=== PATIENT | male | born 1995 | race African-American/Black ===

== ENCOUNTER 2016-10-22 00:46 | Emergency (ER) | payer OTHER ==
[2016-10-22 01:24] LABS: Hematocrit 36 % (42-52); Hemoglobin 11.5 g/dl (14.0-18.0); Mean Corpuscular HGB Conc 32 g/dl (31-36); Mean Corpuscular Hemoglobin 23 pg (27-31); Mean Corpuscular Volume 73 fL (80-94); Mean Platelet Volume 8 um3 (7.4-10.4); Red Blood Count 4.95 10^6/ul (4.0-5.4); Red Cell Distribution Width 16 % (10.5-15); White Blood Count 12.1 10^3/ul (3.5-10.8)
[2016-10-22 01:29] LABS: Add Diff/Slide Review? Slide Review Added; Comments Flag Yes
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
[2016-10-22 01:42] LABS: ALT 13 U/L (7-52); AST 19 U/L (13-39); Albumin 4.4 g/dL (3.2-5.2); Alkaline Phosphatase 77 U/L (34-104); Anion Gap 1 mmol/L (2-11); BUN/Creatinine Ratio 11.5 (8-20); Blood Urea Nitrogen 11 mg/dL (6-24); CO2 Carbon Dioxide 31 mmol/L (22-32); Chloride 106 mmol/L (101-111); EGFR African American 127.2 (>60); EGFR Non-African American 98.9 (>60); Globulin 2.2 g/dL (2-4); Glucose 92 mg/dL (70-100); Sodium 138 mmol/L (133-145); Total Protein 6.6 g/dL (6.4-8.9)
[2016-10-22 01:43] LABS: Acetaminophen < 15 mcg/mL; Alcohol < 10 mg/dL (<10); Salicylate < 2.50 mg/dL (<30)
[2016-10-22 01:52] LABS: TSH (Thyroid Stimulating Horm) 1.93 mcIU/mL (0.34-5.60)
[2016-10-22 02:19] VITALS: BP 130/57
--- NOTE | 2016-10-22 07:27 | PN ---
IBronson SooYoung, scribed for Saman Hercules MD on 10/22/16 at 0723 . Progress Note - Progress Note Date of Service: 10/22/16 Note: SO from Keisha WILEY pending MHE. Pt was medically cleared at 0300. Discussed pt with mental health line runner, pt is on MH hold until morning. diagnosis depression, SI. Condition stable The documentation as recorded by the yasmeenibBronson perez SooYoung accurately reflects the service I personally performed and the decisions made by me, Saman Hercules MD.
[2016-10-22 09:55] LABS: Urine Bacteria Absent (Absent); Urine Bilirubin Negative (Negative); Urine Glucose Negative (Negative); Urine Nitrite Negative (Negative)
[2016-10-22 10:06] LABS: Benzodiazepine Urine Screen None Detected (None Detect)
== END 2016-10-22 11:55 ==
LOC: ED 00:46
DX: F34.9 Persistent mood [affective] disorder, unspecified (principal)
CPT/HCPCS: 36415; 80053; 80307; 80320; 80329; 81003; 81015; 84443; 85025; 87086; 99283; G0480

== ENCOUNTER 2016-10-22 13:27 | Emergency (ER) | payer OTHER ==
[2016-10-22] MEDS ORDERED: diPHENhydraMINE IV* 50 MG/ML 1 ml VIAL (BENADRYL) IM ONE (16:25)
[2016-10-22] MEDS ORDERED: LORazepam INJ* 2 MG/ML 1 ML VIAL IM ONE (16:26)
[2016-10-22] MEDS ORDERED: Haloperidol INJ IV/IM* 5 MG/ML AMP IM ONE (16:26)
[2016-10-22 17:02] LABS: Hematocrit 39 % (42-52); Hemoglobin 12.1 g/dl (14.0-18.0); Mean Corpuscular HGB Conc 31 g/dl (31-36); Mean Corpuscular Hemoglobin 23 pg (27-31); Mean Platelet Volume 8 um3 (7.4-10.4); Red Blood Count 5.22 10^6/ul (4.0-5.4); Red Cell Distribution Width 17 % (10.5-15); White Blood Count 12.8 10^3/ul (3.5-10.8)
[2016-10-22 17:04] LABS: Comments Flag Yes; Mean Corpuscular Volume 74 fL (80-94)
--- NOTE | 2016-10-22 17:10 | CONSULT ---
Consult Consult: Mr. Rodriguez presented on a previous shift with a C/O anxiety. He was medically cleared and had a MHE. They felt that he was safe for D/C. The patient did not want to go as he felt safer here. He was D/C'd in stable condition with a diagnosis of anxiety.
[2016-10-22 17:14] LABS: ALT 15 U/L (7-52); AST 22 U/L (13-39); Albumin 4.2 g/dL (3.2-5.2); Alkaline Phosphatase 91 U/L (34-104); Anion Gap 17 mmol/L (2-11); BUN/Creatinine Ratio 11.9 (8-20); Blood Urea Nitrogen 12 mg/dL (6-24); CO2 Carbon Dioxide 20 mmol/L (22-32); Calcium 9.6 mg/dL (8.6-10.3); Chloride 102 mmol/L (101-111); EGFR African American 119.9 (>60); EGFR Non-African American 93.2 (>60); Globulin 2.9 g/dL (2-4); Glucose 79 mg/dL (70-100); Potassium 3.6 mmol/L (3.5-5.0); Sodium 139 mmol/L (133-145); Total Protein 7.1 g/dL (6.4-8.9)
[2016-10-22 17:33] LABS: Acetaminophen < 15 mcg/mL; Alcohol < 10 mg/dL (<10); Salicylate < 2.50 mg/dL (<30)
[2016-10-22 17:43] LABS: TSH (Thyroid Stimulating Horm) 1.46 mcIU/mL (0.34-5.60)
[2016-10-22 18:10] LABS: Urine Bilirubin Negative (Negative); Urine Glucose Negative (Negative); Urine Nitrite Negative (Negative)
[2016-10-22 18:23] LABS: Benzodiazepine Urine Screen None Detected (None Detect)
[2016-10-22 23:30] VITALS: BP 112/57
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
[2016-10-23] MEDS ORDERED: diPHENhydraMINE IV* 50 MG/ML 1 ml VIAL (BENADRYL) IM ONE (10:19)
[2016-10-23] MEDS ORDERED: Haloperidol INJ IV/IM* 5 MG/ML AMP IM ONE (10:19)
[2016-10-23] MEDS ORDERED: LORazepam INJ* 2 MG/ML 1 ML VIAL IM ONE (10:19)
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
== END 2016-10-23 15:16 ==
LOC: ED 13:27
DX: R45.851 Suicidal ideations (principal); F91.9 Conduct disorder, unspecified; R45.6 Violent behavior
CPT/HCPCS: 36415; 80053; 80307; 80320; 80329; 81003; 84443; 85025; 96372; 99285; G0480; J1200; J1630; J2060

== ENCOUNTER 2016-10-25 23:23 | Emergency (ER) | payer OTHER ==
[2016-10-25 23:34] VITALS: BP 159/71
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
[2016-10-26 01:06] LABS: Hematocrit 36 % (42-52); Hemoglobin 11.7 g/dl (14.0-18.0); Mean Corpuscular HGB Conc 33 g/dl (31-36); Mean Corpuscular Hemoglobin 24 pg (27-31); Mean Platelet Volume 8 um3 (7.4-10.4); Red Blood Count 4.96 10^6/ul (4.0-5.4); Red Cell Distribution Width 16 % (10.5-15)
[2016-10-26 01:08] LABS: Urine Bilirubin Negative (Negative); Urine Glucose Negative (Negative); Urine Nitrite Negative (Negative)
[2016-10-26 01:22] LABS: ALT 20 U/L (7-52); AST 30 U/L (13-39); Acetaminophen < 15 mcg/mL; Albumin 4.3 g/dL (3.2-5.2); Alcohol < 10 mg/dL (<10); Alkaline Phosphatase 86 U/L (34-104); Anion Gap 7 mmol/L (2-11); BUN/Creatinine Ratio 17.1 (8-20); Blood Urea Nitrogen 18 mg/dL (6-24); CO2 Carbon Dioxide 29 mmol/L (22-32); Calcium 9.6 mg/dL (8.6-10.3); Chloride 101 mmol/L (101-111); EGFR African American 114.7 (>60); EGFR Non-African American 89.2 (>60); Globulin 2.6 g/dL (2-4); Glucose 96 mg/dL (70-100); Potassium 3.9 mmol/L (3.5-5.0); Salicylate < 2.50 mg/dL (<30); Sodium 137 mmol/L (133-145); Total Protein 6.9 g/dL (6.4-8.9)
[2016-10-26 01:23] LABS: Benzodiazepine Urine Screen None Detected (None Detect)
[2016-10-26 01:26] LABS: Comments Flag Yes
[2016-10-26 01:27] LABS: Mean Corpuscular Volume 72 fL (80-94)
[2016-10-26 01:33] LABS: TSH (Thyroid Stimulating Horm) 2.63 mcIU/mL (0.34-5.60)
[2016-10-26] MEDS ORDERED: Haloperidol TAB* 5 MG PO ONE (06:15)
== END 2016-10-26 07:00 | disposition home or self-care (01) ==
LOC: ED 23:23
DX: F15.20 Other stimulant dependence, uncomplicated (principal); R06.02 Shortness of breath; F41.9 Anxiety disorder, unspecified
CPT/HCPCS: 36415; 80053; 80307; 80320; 80329; 81003; 84443; 85025; 99285; A9270-GY; G0480

== ENCOUNTER 2016-10-26 10:43 | Emergency (ER) | payer OTHER ==
[2016-10-26 11:00] VITALS: BP 112/52
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
== END 2016-10-26 19:47 | disposition home or self-care (01) ==
LOC: ED 10:43
DX: Z72.811 Adult antisocial behavior (principal)
CPT/HCPCS: 99283

== ENCOUNTER 2016-11-17 19:50 | Emergency (ER) | payer OTHER ==
[2016-11-17 20:49] LABS: Hematocrit 35 % (42-52); Hemoglobin 11.5 g/dl (14.0-18.0); Mean Corpuscular HGB Conc 33 g/dl (31-36); Mean Corpuscular Hemoglobin 23 pg (27-31); Mean Platelet Volume 8 um3 (7.4-10.4); Red Blood Count 4.93 10^6/ul (4.0-5.4); Red Cell Distribution Width 16 % (10.5-15); White Blood Count 15.5 10^3/ul (3.5-10.8)
[2016-11-17 20:50] LABS: Comments Flag Yes; Mean Corpuscular Volume 72 fL (80-94)
[2016-11-17 21:03] LABS: ALT 35 U/L (7-52); AST 36 U/L (13-39); Albumin 4.5 g/dL (3.2-5.2); Alkaline Phosphatase 97 U/L (34-104); Anion Gap 10 mmol/L (2-11); BUN/Creatinine Ratio 18.3 (8-20); Blood Urea Nitrogen 19 mg/dL (6-24); CO2 Carbon Dioxide 27 mmol/L (22-32); Calcium 9.5 mg/dL (8.6-10.3); Chloride 97 mmol/L (101-111); EGFR African American 115.9 (>60); EGFR Non-African American 90.2 (>60); Globulin 2.8 g/dL (2-4); Glucose 85 mg/dL (70-100); Potassium 3.7 mmol/L (3.5-5.0); Sodium 134 mmol/L (133-145); Total Protein 7.3 g/dL (6.4-8.9)
--- NOTE | 2016-11-17 21:40 | ED ---
Kamini Betancourt Thomas, scribed for Ashvin Caceres MD on 11/17/16 at 2014 . Psychiatric Complaint - HPI Summary HPI Summary: The pt is a 21 y/o M presenting to the ED in need of a mental health examination. He is paranoid, saying that I dont know who to trust because I dont know anybody here. The patient. He says he is hungry and dehydrated. Yesterday, the patient drank excessively and used crack cocaine. Pt denies any pain, abd pain, and HI. PMHx: previously healthy. PSHx: none. SHx: alcohol use, marijuana use, crack cocaine use. FHx: drug abuse. He has recent visits to [facility] ED for psychiatric complaints. - History Of Current Complaint Time Seen by Provider: 11/17/16 20:01 Hx Obtained From: Patient Onset/Duration: Still Present Timing: Constant Severity Currently: Moderate Aggravating Factor(s): Other - Unknown Alleviating Factor(s): Nothing Associated Signs And Symptoms: Positive: Paranoid Behavior Related History: Positive For: Prior Psychiatric Issues Has Suicidal: Denies: Thoughts Has Homicidal: Denies: Thoughts Ingestion History: Type/Name Of Drug - alcohol and crack cocaine use yesterday - Allergies/Home Medications Allergies/Adverse Reactions: Allergies Allergy/AdvReac Type Severity Reaction Status Date / Time No Known Allergies Allergy Verified 10/23/16 10:15 PMH/Surg Hx/FS Hx/Imm Hx Previously Healthy: No Endocrine/Hematology History: Denies: Hx Anticoagulant Therapy Cardiovascular History: Denies: Hx Hypertension Psychiatric History: Reports: Hx Anxiety, Hx Attention Deficit Hyperactivity Disorder, Hx Depression, Hx Post Traumatic Stress Disorder, Hx Bipolar Disorder , Hx of Violent Episodes Against Others, Hx Substance Abuse - stimulants - adderall, cocaine, crack Denies: Hx Eating Disorder - Surgical History Surgery Procedure, Year, and Place: None - Family History Known Family History: Positive: Other - depression, drug abuse - Social History Alcohol Use: Occasionally Substance Use Type: Reports: Cocaine, Marijuana Substance Use Comment - Amount & Last Used: crack cocaine Smoking Status (MU): Unknown if Ever Smoked Review of Systems Negative: Abdominal Pain Negative: Other - NEGATIVE: any pain Psychological: Other - Paranoid, in need of MHE; NEGATIVE: HI All Other Systems Reviewed And Are Negative: Yes Physical Exam Triage Information Reviewed: Yes Vital Signs On Initial Exam: Temp 99.7, HR 94, RR 20, SaO2 99, BP 131/65 Vital Signs Reviewed: Yes Appearance: Positive: Well-Appearing, No Pain Distress Head/Face: Positive: Normal Head/Face Inspection Eyes: Positive: EOMI ENT: Positive: Normal ENT inspection Neck: Positive: Nontender Respiratory/Lung Sounds: Positive: Clear to Auscultation, Breath Sounds Present Cardiovascular: Positive: RRR. Negative: Murmur Abdomen Description: Positive: Nontender Musculoskeletal: Positive: Strength/ROM Intact Neurological: Positive: Sensory/Motor Intact, Alert, Oriented to Person Place, Time, CN Intact II-III Psychiatric: Positive: Anxious - the patient is anxious and worried someone will harm him. - Emi Coma Scale Best Eye Response: 4 - Spontaneous Best Motor Response: 6 - Obeys Commands Best Verbal Response: 5 - Oriented Diagnostics - Vital Signs Temp 99.7, HR 94, RR 20, SaO2 99, BP 131/65 - Laboratory Result Diagrams: 11/17/16 20:43 11/17/16 20:43 Lab Statement: Any lab studies that have been ordered have been reviewed, and results considered in the medical decision making process. Course/Dx - Course Assessment/Plan: The pt is a 21 y/o M presenting to the ED in need of a mental health examination. He is paranoid. He excessively drank and used crack cocaine yesterday. Sign out awaiting tylenol, asa, etoh and utox screen. - Differential Dx/Clinical Impression Provider Diagnosis: Paranoid delusion, Polysubstance abuse Discharge - Discharge Plan Condition: Good Disposition: OTHER Discharge Disposition Comment: awaiting psych eval, sign out Dr Daley [id number] Referrals: Non Staff,Doctor [Primary Care Provider] - The documentation as recorded by the Kamini graff Thomas accurately reflects the service I personally performed and the decisions made by me, Ashvin Caceres MD.
[2016-11-17 22:08] LABS: Acetaminophen < 15 mcg/mL; Alcohol < 10 mg/dL (<10); Salicylate < 2.50 mg/dL (<30)
[2016-11-17 22:25] LABS: TSH (Thyroid Stimulating Horm) 2.36 mcIU/mL (0.34-5.60)
[2016-11-18 13:18] LABS: Urine Bilirubin Negative (Negative); Urine Glucose Negative (Negative); Urine Nitrite Negative (Negative)
[2016-11-18 13:29] LABS: Benzodiazepine Urine Screen None Detected (None Detect)
[2016-11-18 16:41] VITALS: BP 119/53
== END 2016-11-18 16:04 ==
LOC: ED 19:50
DX: F22 Delusional disorders (principal); F19.10 Other psychoactive substance abuse, uncomplicated; F90.9 Attention-deficit hyperactivity disorder, unspecified type; F41.9 Anxiety disorder, unspecified; F32.9 Major depressive disorder, single episode, unspecified
CPT/HCPCS: 36415; 80053; 80307; 80320; 80329; 81003; 84443; 85025; 99283; G0480

== ENCOUNTER 2016-11-18 18:34 | Inpatient (IN) | payer OTHER ==
--- NOTE | 2016-11-18 21:12 | ED ---
Psychiatric Complaint - HPI Summary HPI Summary: 21M presents for MHE. He states he does not feel safe an no one will listen to him. He states that he feels someone is trying to hurt him with a knife. He states he needs to be admitted but did not want to come here because no one will listen to him. He uses drugs and ETOH. He was discharged from here earlier this morning. He states someone was following him. - History Of Current Complaint Chief Complaint: EDMentalHealth Time Seen by Provider: 11/18/16 18:47 - Allergies/Home Medications Allergies/Adverse Reactions: Allergies Allergy/AdvReac Type Severity Reaction Status Date / Time No Known Allergies Allergy Verified 11/17/16 21:42 Home Medications: Home Medications Amphetamine-Dextroamphetamine [Amphetamine/Dextroampheta 30 mg-] 1 cap PO TID [History Confirmed 11/18/16] PMH/Surg Hx/FS Hx/Imm Hx Endocrine/Hematology History: Denies: Hx Anticoagulant Therapy Cardiovascular History: Denies: Hx Hypertension Psychiatric History: Reports: Hx Anxiety, Hx Attention Deficit Hyperactivity Disorder, Hx Depression, Hx Post Traumatic Stress Disorder, Hx Bipolar Disorder , Hx of Violent Episodes Against Others, Hx Substance Abuse - stimulants - adderall, cocaine, crack Denies: Hx Eating Disorder - Surgical History Surgery Procedure, Year, and Place: None Infectious Disease History: No Infectious Disease History: Denies: Traveled Outside the [place] in Last 30 Days - Family History Known Family History: Positive: Other - depression, drug abuse - Social History Alcohol Use: Occasionally Substance Use Type: Reports: Cocaine, Marijuana Substance Use Comment - Amount & Last Used: crack cocaine Smoking Status (MU): Unknown if Ever Smoked Review of Systems Negative: Fever Negative: Chest Pain Negative: Shortness Of Breath Positive: Depressed All Other Systems Reviewed And Are Negative: Yes Physical Exam Triage Information Reviewed: Yes Vital Signs On Initial Exam: Initial Vitals Temp Pulse Resp BP Pulse Ox 98.0 F 57 18 122/62 100 11/18/16 18:43 11/18/16 18:43 11/18/16 18:43 11/18/16 18:43 11/18/16 18:43 Vital Signs Reviewed: Yes Appearance: Positive: Well-Appearing Skin: Positive: Warm, Dry Head/Face: Positive: Normal Head/Face Inspection Eyes: Positive: Normal, Conjunctiva Clear Respiratory/Lung Sounds: Positive: Clear to Auscultation, Breath Sounds Present Cardiovascular: Positive: Normal, RRR Musculoskeletal: Positive: Normal Neurological: Positive: Normal Psychiatric: Positive: Other - paranoid, racing thoughts Diagnostics - Vital Signs Vital Signs Temp Pulse Resp BP Pulse Ox 11/18/16 18:43 98.0 F 57 18 122/62 100 - Laboratory Lab Statement: Any lab studies that have been ordered have been reviewed, and results considered in the medical decision making process. Course/Dx - Course Course Of Treatment: 21M presents for MHE. He states he does not feel safe an no one will listen to him. He states that he feels someone is trying to hurt him with a knife. He states he needs to be admitted but did not want to come here because no one will listen to him. He uses drugs and ETOH. He was discharged from here earlier this morning. on exam very lucid thoughts. medically clear for MHE. is going to be voluntarily admitted. - Differential Dx/Clinical Impression Differential Diagnosis/HQI/PQRI: Positive: Bipolar Disorder, Depression, Suicidal Ideation Provider Diagnosis: Paranoid Discharge - Discharge Plan Condition: Stable [facility] Referrals: Non Staff,Doctor [Primary Care Provider] -
[2016-11-18] MEDS ORDERED: hydrOXYzine HCL TAB* 50 MG ONE (23:30)
[2016-11-18] MEDS ORDERED: Acetaminophen TAB* 325 MG ONE (23:30)
[2016-11-18] MEDS ORDERED: OLANzapine TAB* 10 MG ONE (23:30)
[2016-11-18] MEDS ORDERED: Al Hydrox/Mg Hydrox/Simet LIQ* 30 ML UDC PO PRN (23:45)
[2016-11-18] MEDS ORDERED: Acetaminophen TAB* 325 MG PO PRN (23:45)
[2016-11-19] MEDS: Vitamin THERAPEUTIC TAB PO SCH (12:28)
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
[2016-11-20] MEDS: Vitamin THERAPEUTIC TAB PO SCH (08:44)
[2016-11-20] MEDS: hydrOXYzine HCL TAB* 50 MG PO PRN (16:07)
[2016-11-20] MEDS: OLANzapine TAB* 5 MG PO SCH ×2 (17:58→20:12)
[2016-11-21 08:10] VITALS: BP 126/53
[2016-11-21] MEDS: Vitamin THERAPEUTIC TAB PO SCH (09:15)
--- NOTE | 2016-11-21 15:03 | PN ---
Subjective - Subjective Subjective: Chadwick is requesting to leave, He is in tenuous behavioral control, mildly agitated, c/o about Olanzapine causing him to be sedated, he wonders why Welbutrin, he struggles to accept feedback that it was not the right medication/ for evgeny/psychosis. He denies drug withdrawal symptoms. Per staff, he has been compliant with taking prescribed Olanzapine but is not attending programming activities. Plan - Treatment Plan Medications: Current Medications Acetaminophen (Tylenol Tab*) 650 mg PO Q4H PRN PRN Reason: PAIN or TEMP > 101 F Al Hydrox/Mg Hydrox/Simethicone (Maalox Plus*) 30 ml PO Q4H PRN PRN Reason: INDIGESTION Hydroxyzine HCl (Atarax Tab*) 50 mg PO Q6H PRN PRN Reason: AGITATION/ANXIETY Last Admin: 11/20/16 16:07 Dose: 50 mg Multivitamins (Theragran Tab*) 1 tab PO DAILY COUNT INCLUDES THE [facility] Last Admin: 11/21/16 09:15 Dose: Not Given Olanzapine (Zyprexa Tab*) 10 mg PO BEDTIME COUNT INCLUDES THE [facility] Last Admin: 11/20/16 20:12 Dose: 10 mg
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
[2016-11-21] MEDS: OLANzapine TAB* 5 MG PO SCH (20:23)
[2016-11-21] MEDS: hydrOXYzine HCL TAB* 50 MG PO PRN (21:57)
[2016-11-22] MEDS: Vitamin THERAPEUTIC TAB PO SCH (09:06)
[2016-11-22] MEDS ORDERED: Mouth Piece, Nicotine* 1 EACH CARTRIDGE INH ONE (12:00)
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
[2016-11-22] MEDS: hydrOXYzine HCL TAB* 50 MG PO PRN (13:30)
[2016-11-22] MEDS: OLANzapine TAB* 5 MG PO SCH (20:28)
[2016-11-23] MEDS: Vitamin THERAPEUTIC TAB PO SCH (11:14)
[2016-11-23] MEDS: Nicotine PATCH 7 MG/24 HR* PATCH TRANSDERM SCH (11:14)
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
[2016-11-23] MEDS: hydrOXYzine HCL TAB* 50 MG PO PRN (18:39)
[2016-11-23] MEDS: Nicotine Patch Removal NOTE PATCH OFF SCH (20:30)
[2016-11-23] MEDS ORDERED: Paliperidone TAB* 6 MG PO SCH (21:00)
[2016-11-24] MEDS: Nicotine Inhaler* 10 MG AMP INH PRN (00:57)
[2016-11-24] MEDS: hydrOXYzine HCL TAB* 50 MG PO PRN ×2 (00:57→21:36)
[2016-11-24] MEDS: Nicotine PATCH 7 MG/24 HR* PATCH TRANSDERM SCH (09:32)
[2016-11-24] MEDS: Vitamin THERAPEUTIC TAB PO SCH (09:58)
[2016-11-24] MEDS: buPROPion TAB* 75 MG PO SCH (09:58)
[2016-11-24] MEDS ORDERED: Paliperidone SUSTENNA* 234 MG/1.5 ML IM ONE (14:42)
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
[2016-11-24] MEDS: traZODone TAB* 50 MG TAB PO PRN (21:35)
[2016-11-24] MEDS: Nicotine Patch Removal NOTE PATCH OFF SCH (21:37)
[2016-11-25] MEDS: Haloperidol TAB* 5 MG PO PRN (02:46)
[2016-11-25] MEDS: Nicotine PATCH 7 MG/24 HR* PATCH TRANSDERM SCH (08:29)
[2016-11-25] MEDS: buPROPion TAB* 75 MG PO SCH (08:29)
[2016-11-25 09:20] LABS: Albumin 4.2 g/dL (3.2-5.2); BUN/Creatinine Ratio 11.4 (8-20); Calcium 9.6 mg/dL (8.6-10.3); EGFR African American 159.2 (>60); EGFR Non-African American 123.8 (>60); Globulin 2.4 g/dL (2-4); HDL Cholesterol 49.7 mg/dL; Total Bilirubin 0.2 mg/dL (0.2-1.0); Total Protein 6.6 g/dL (6.4-8.9)
[2016-11-25] MEDS: Vitamin THERAPEUTIC TAB PO SCH (11:00)
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
[2016-11-25] MEDS: Nicotine Inhaler* 10 MG AMP INH PRN ×2 (19:59→22:52)
[2016-11-25] MEDS: Nicotine Patch Removal NOTE PATCH OFF SCH (20:00)
[2016-11-25] MEDS: hydrOXYzine HCL TAB* 50 MG PO PRN (21:40)
[2016-11-25] MEDS: traZODone TAB* 50 MG TAB PO PRN (21:40)
[2016-11-26] MEDS: Haloperidol TAB* 5 MG PO PRN ×2 (00:20→21:56)
[2016-11-26] MEDS: Nicotine PATCH 7 MG/24 HR* PATCH TRANSDERM SCH (10:00)
[2016-11-26] MEDS: buPROPion TAB* 75 MG PO SCH (10:00)
[2016-11-26] MEDS: Vitamin THERAPEUTIC TAB PO SCH (10:00)
[2016-11-26] MEDS: Nicotine Patch Removal NOTE PATCH OFF SCH (20:19)
[2016-11-26] MEDS: hydrOXYzine HCL TAB* 50 MG PO PRN (20:42)
[2016-11-26] MEDS: traZODone TAB* 50 MG TAB PO PRN (20:42)
[2016-11-27] MEDS: buPROPion TAB* 75 MG PO SCH ×2 (10:09→13:53)
[2016-11-27] MEDS: Nicotine PATCH 7 MG/24 HR* PATCH TRANSDERM SCH (10:09)
[2016-11-27] MEDS: Vitamin THERAPEUTIC TAB PO SCH (10:09)
[2016-11-27] MEDS: Nicotine GUM* 2 MG PO PRN ×2 (13:48→20:20)
[2016-11-27] MEDS: Nicotine Patch Removal NOTE PATCH OFF SCH (20:27)
[2016-11-27] MEDS: hydrOXYzine HCL TAB* 50 MG PO PRN (21:33)
[2016-11-27] MEDS: Haloperidol TAB* 5 MG PO PRN (21:33)
[2016-11-27] MEDS: traZODone TAB* 50 MG TAB PO PRN (21:33)
[2016-11-28] MEDS: Nicotine PATCH 7 MG/24 HR* PATCH TRANSDERM SCH (09:24)
[2016-11-28] MEDS: Vitamin THERAPEUTIC TAB PO SCH (09:24)
[2016-11-28] MEDS: buPROPion TAB* 75 MG PO SCH ×2 (09:24→12:52)
[2016-11-28] MEDS: Nicotine GUM* 2 MG PO PRN (12:52)
[2016-11-28] MEDS ORDERED: Paliperidone SUSTENNA* 156 MG/1 ML IM ONE (15:00)
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
[2016-11-28] MEDS: Nicotine Patch Removal NOTE PATCH OFF SCH (20:33)
[2016-11-28] MEDS: hydrOXYzine HCL TAB* 50 MG PO PRN (21:15)
[2016-11-28] MEDS: Haloperidol TAB* 5 MG PO PRN (21:15)
[2016-11-28] MEDS: traZODone TAB* 50 MG TAB PO PRN (21:15)
[2016-11-29] MEDS: Vitamin THERAPEUTIC TAB PO SCH (09:21)
[2016-11-29] MEDS: Nicotine PATCH 7 MG/24 HR* PATCH TRANSDERM SCH (09:21)
[2016-11-29] MEDS: buPROPion TAB* 75 MG PO SCH (12:09)
[2016-11-29 14:45] LABS: Hematocrit 37 % (42-52); Hemoglobin 11.9 g/dl (14.0-18.0); Mean Corpuscular HGB Conc 32 g/dl (31-36); Mean Corpuscular Hemoglobin 23 pg (27-31); Mean Platelet Volume 8 um3 (7.4-10.4); Red Blood Count 5.16 10^6/ul (4.0-5.4); Red Cell Distribution Width 17 % (10.5-15); White Blood Count 8.5 10^3/ul (3.5-10.8)
[2016-11-29 14:49] LABS: Comments Flag Yes; Mean Corpuscular Volume 72 fL (80-94)
[2016-11-29 15:07] LABS: Albumin 4.4 g/dL (3.2-5.2); BUN/Creatinine Ratio 14.1 (8-20); Calcium 9.9 mg/dL (8.6-10.3); EGFR African American 146.3 (>60); EGFR Non-African American 113.8 (>60); Globulin 2.9 g/dL (2-4); Potassium 4.1 mmol/L (3.5-5.0); Total Bilirubin 0.2 mg/dL (0.2-1.0); Total Protein 7.3 g/dL (6.4-8.9)
[2016-11-29] MEDS: hydrOXYzine HCL TAB* 50 MG PO PRN (15:38)
[2016-11-29] MEDS ORDERED: PPD test dose* 5 TU/0.1 ML TEST (*USE PPD ORDER SET*) INTRADERM ONE (17:00)
[2016-11-29] MEDS: Ferrous Sulfate TAB* 325 MG PO SCH (17:44)
[2016-11-29] MEDS: traZODone TAB* 50 MG TAB PO PRN (20:52)
[2016-11-29] MEDS: Nicotine Patch Removal NOTE PATCH OFF SCH (20:53)
[2016-11-29] MEDS: Haloperidol TAB* 5 MG PO PRN (23:18)
[2016-11-30] MEDS: Vitamin THERAPEUTIC TAB PO SCH (09:22)
[2016-11-30] MEDS: buPROPion TAB* 75 MG PO SCH (09:23)
[2016-11-30] MEDS: Nicotine PATCH 7 MG/24 HR* PATCH TRANSDERM SCH (09:23)
[2016-11-30] MEDS: Ferrous Sulfate TAB* 325 MG PO SCH (09:23)
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
[2016-11-30] MEDS: Haloperidol TAB* 5 MG PO PRN (20:32)
[2016-11-30] MEDS: hydrOXYzine HCL TAB* 50 MG PO PRN (20:32)
[2016-11-30] MEDS: traZODone TAB* 50 MG TAB PO PRN (20:33)
[2016-11-30] MEDS: Nicotine Patch Removal NOTE PATCH OFF SCH (22:02)
[2016-12-01] MEDS: Vitamin THERAPEUTIC TAB PO SCH (10:33)
[2016-12-01] MEDS: Ferrous Sulfate TAB* 325 MG PO SCH (10:33)
[2016-12-01] MEDS: Nicotine PATCH 7 MG/24 HR* PATCH TRANSDERM SCH (10:34)
[2016-12-01] MEDS: buPROPion TAB* 75 MG PO SCH (10:34)
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
[2016-12-01] MEDS ORDERED: PPD Reading NOTE* (*USE PPD ORDER SET*) SCH (17:00)
== END 2016-12-01 12:15 | disposition home or self-care (01) | DRG 753 ==
LOC: ED 18:34 → BSU 11-19 01:02
PROVIDERS: ADMIT Psychiatry & Neurology Psychiatry; ATTEND Psychiatry & Neurology Psychiatry
DX: F31.2 Bipolar disorder, current episode manic severe with psychotic features (principal); F12.90 Cannabis use, unspecified, uncomplicated; F14.90 Cocaine use, unspecified, uncomplicated; F60.2 Antisocial personality disorder; F90.9 Attention-deficit hyperactivity disorder, unspecified type; F41.9 Anxiety disorder, unspecified; F43.10 Post-traumatic stress disorder, unspecified; Z59.0 Homelessness; Z56.0 Unemployment, unspecified; Z72.89 Other problems related to lifestyle; Z72.0 Tobacco use; Z91.5 Personal history of self-harm; Z81.8 Family history of other mental and behavioral disorders; Z81.4 Family history of other substance abuse and dependence
CPT/HCPCS: 36415; 80053; 80061; 83036; 85025; 85660; 99222; 99231; 99232; 99238; A9270-GY; J2426

== ENCOUNTER → 2016-12-02 04:54 | Emergency (ER) | payer OTHER ==
[2016-12-02 05:03] VITALS: BP 135/58
[2016-12-02 05:53] LABS: Urine Bilirubin Negative (Negative); Urine Glucose Negative (Negative); Urine Nitrite Negative (Negative)
[2016-12-02 06:06] LABS: Benzodiazepine Urine Screen None Detected (None Detect)
[2016-12-02 06:14] LABS: Hematocrit 34 % (42-52); Hemoglobin 11.1 g/dl (14.0-18.0); Mean Corpuscular HGB Conc 33 g/dl (31-36); Mean Corpuscular Hemoglobin 23 pg (27-31); Mean Platelet Volume 7 um3 (7.4-10.4); Red Blood Count 4.75 10^6/ul (4.0-5.4); Red Cell Distribution Width 16 % (10.5-15); White Blood Count 11.1 10^3/ul (3.5-10.8)
[2016-12-02 06:15] LABS: Comments Flag Yes; Mean Corpuscular Volume 71 fL (80-94)
[2016-12-02 06:29] LABS: ALT 33 U/L (7-52); AST 21 U/L (13-39); Acetaminophen < 15 mcg/mL; Albumin 4.5 g/dL (3.2-5.2); Alcohol < 10 mg/dL (<10); Alkaline Phosphatase 89 U/L (34-104); Anion Gap 6 mmol/L (2-11); Blood Urea Nitrogen 14 mg/dL (6-24); CO2 Carbon Dioxide 31 mmol/L (22-32); Calcium 10.2 mg/dL (8.6-10.3); Chloride 98 mmol/L (101-111); EGFR African American 121.3 (>60); EGFR Non-African American 94.3 (>60); Globulin 2.8 g/dL (2-4); Glucose 98 mg/dL (70-100); Potassium 3.8 mmol/L (3.5-5.0); Salicylate < 2.50 mg/dL (<30); Sodium 135 mmol/L (133-145); Total Protein 7.3 g/dL (6.4-8.9)
[2016-12-02 06:42] LABS: TSH (Thyroid Stimulating Horm) 2.52 mcIU/mL (0.34-5.60)
--- NOTE | 2016-12-02 06:59 | ED ---
Kamini Betancourt Thomas, scribed for Darius Bush on 12/02/16 at 0547 . Psychiatric Complaint - HPI Summary HPI Summary: The pt is a 21 y/o M presenting to the ED c/o SI. He says that he feels overwhelmed. He has a depressed affect. There are no known aggravating factors, alleviating factors, or recent stressors. Pt denies HI and auditory hallucinations. He is unsure which mental health problems he has. He has multiple frequent prior visits for psychiatric complaints. - History Of Current Complaint Chief Complaint: [facility]ental[facility] Time Seen by Provider: 12/02/16 05:06 Hx Obtained From: Patient Onset/Duration: Still Present Timing: Constant Character: Depressed Aggravating Factor(s): Other - Unknown Alleviating Factor(s): Other - Unknown Related History: Positive For: Prior Psychiatric Issues Has Suicidal: Reports: Thoughts Has Homicidal: Denies: Thoughts Recent Stressor(s): Unknown - Allergies/Home Medications Allergies/Adverse Reactions: Allergies Allergy/AdvReac Type Severity Reaction Status Date / Time No Known Allergies Allergy Verified 12/02/16 05:03 PMH/Surg Hx/FS Hx/Imm Hx Previously Healthy: No Endocrine/Hematology History: Denies: Hx Anticoagulant Therapy Cardiovascular History: Denies: Hx Hypertension Sensory History: Denies: Hx Contacts or Glasses, Hx Hearing Aid Opthamlomology History: Denies: Hx Contacts or Glasses Psychiatric History: Reports: Hx Anxiety, Hx Attention Deficit Hyperactivity Disorder, Hx Depression, Hx Post Traumatic Stress Disorder, Hx Bipolar Disorder , Hx of Violent Episodes Against Others, Hx Substance Abuse - stimulants - adderall, cocaine, crack Denies: Hx Eating Disorder - Surgical History Surgery Procedure, Year, and Place: None Infectious Disease History: No Infectious Disease History: Denies: Traveled Outside the [place] in Last 30 Days - Family History Known Family History: Positive: Other - depression, drug abuse - Social History Alcohol Use: Weekly Alcohol Amount: beer Substance Use Type: Reports: Cocaine, Marijuana Substance Use Comment - Amount & Last Used: crack cocaine Smoking Status (MU): Never Smoked Tobacco Review of Systems Negative: Fever Psychological: Other - SI; NEGATIVE: HI, auditory hallucinatoins. Positive: Depressed All Other Systems Reviewed And Are Negative: Yes Physical Exam - Summary Physical Exam Summary: Appearance: Well appearing, no pain distress. Skin: Warm, dry, reflects adequate perfusion. Head/face: Normal. Eyes: EOMI, SARA. ENT: Normal. Neck: Supple, nontender. Respiratory: CTA, breath sounds present. Cardiovascular: RRR, pulses symmetrical. Abdomen: Nontender, soft. Bowel: Present. Musculoskeletal: Normal, strength/ROM intact. Neuro: Normal, sensory motor intact, A&Ox3. PSYCHIATRIC: depressed affect. Triage Information Reviewed: Yes Vital Signs On Initial Exam: Initial Vitals Temp Pulse Resp BP Pulse Ox 97.8 F 65 14 135/58 100 12/02/16 04:59 12/02/16 04:59 12/02/16 04:59 12/02/16 04:59 12/02/16 04:59 Vital Signs Reviewed: Yes Diagnostics - Vital Signs Vital Signs Temp Pulse Resp BP Pulse Ox 12/02/16 04:59 97.8 F 65 14 135/58 100 - Laboratory Result Diagrams: 12/02/16 06:00 12/02/16 06:00 Lab Statement: Any lab studies that have been ordered have been reviewed, and results considered in the medical decision making process. - EKG 05:32 Cardiac Rate: NL - at 79 BPM EKG Rhythm: Sinus Rhythm Course/Dx - Course Assessment/Plan: The patient is medically cleared for MHE. He will be signed out to the next ED doc pending a MHE and awaiting disposition. - Differential Dx/Clinical Impression Provider Diagnosis: Depression, Suicidal ideation Discharge - Discharge Plan Condition: Fair Disposition: OTHER Discharge Disposition Comment: Sign out at shift change pending MHE and awaiting disposition. Referrals: Non Staff,Doctor [Primary Care Provider] - The documentation as recorded by the Kamini graff Thomas accurately reflects the service I personally performed and the decisions made by Rachelle luo Emmanuel.
== END ==
LOC: ED 04:54
DX: F32.9 Major depressive disorder, single episode, unspecified (principal); R45.851 Suicidal ideations; Z04.8 Encounter for examination and observation for other specified reasons; F41.9 Anxiety disorder, unspecified; F90.9 Attention-deficit hyperactivity disorder, unspecified type; F14.90 Cocaine use, unspecified, uncomplicated; F12.90 Cannabis use, unspecified, uncomplicated
CPT/HCPCS: 36415; 80053; 80307; 80320; 80329; 81003; 84443; 85025; 93005; 99283; G0480

== ENCOUNTER → 2016-12-14 16:29 | Emergency (ER) | payer OTHER ==
[2016-12-14 18:02] LABS: Hematocrit 34 % (42-52); Hemoglobin 10.7 g/dl (14.0-18.0); Mean Corpuscular HGB Conc 31 g/dl (31-36); Mean Corpuscular Hemoglobin 23 pg (27-31); Mean Platelet Volume 8 um3 (7.4-10.4); Red Blood Count 4.68 10^6/ul (4.0-5.4); Red Cell Distribution Width 17 % (10.5-15); White Blood Count 5.6 10^3/ul (3.5-10.8)
[2016-12-14 18:13] LABS: Comments Flag Yes; Mean Corpuscular Volume 73 fL (80-94)
[2016-12-14 18:20] LABS: ALT 12 U/L (7-52); AST 16 U/L (13-39); Albumin 3.8 g/dL (3.2-5.2); Alkaline Phosphatase 62 U/L (34-104); Anion Gap 4 mmol/L (2-11); BUN/Creatinine Ratio 9.1 (8-20); Blood Urea Nitrogen 8 mg/dL (6-24); CO2 Carbon Dioxide 25 mmol/L (22-32); Chloride 113 mmol/L (101-111); EGFR African American 140.6 (>60); EGFR Non-African American 109.3 (>60); Globulin 2.6 g/dL (2-4); Glucose 101 mg/dL (70-100); Sodium 142 mmol/L (133-145); Total Protein 6.4 g/dL (6.4-8.9)
[2016-12-14 18:39] LABS: Acetaminophen < 15 mcg/mL; Alcohol < 10 mg/dL (<10); Salicylate < 2.50 mg/dL (<30)
[2016-12-14 18:52] LABS: TSH (Thyroid Stimulating Horm) 1.81 mcIU/mL (0.34-5.60)
[2016-12-14 19:18] LABS: Urine Bilirubin Negative (Negative); Urine Glucose Negative (Negative); Urine Nitrite Negative (Negative)
[2016-12-14 19:28] LABS: Benzodiazepine Urine Screen None Detected (None Detect)
--- NOTE | 2016-12-14 20:48 | ED ---
Xiomara Betancourt Alfonso, scribed for Joanne Salguero MD on 12/14/16 at 1706 . Psychiatric Complaint - HPI Summary HPI Summary: This patient is a 21 year old M BIBA 941 to [facility] with a chief complaint of SI since earlier today. He states I am always feeling like I want to kill myself if I dont get help with rehab. The patient rates the pain 0/10 in severity. Symptoms aggravated by Wellbutrin, hydroxyzine, and trazodone. Symptoms alleviated by nothing. Patient denies fever, and chills. - History Of Current Complaint Chief Complaint: EDPsychosocial Time Seen by Provider: 12/14/16 16:49 Hx Obtained From: Patient Onset/Duration: Gradual Onset, Lasting Hours, Still Present Timing: Constant Aggravating Factor(s): Other - "wellbutrin, hydroxyzine, and trazodone" Alleviating Factor(s): Nothing Has Suicidal: Reports: Thoughts - Allergies/Home Medications Allergies/Adverse Reactions: Allergies Allergy/AdvReac Type Severity Reaction Status Date / Time No Known Allergies Allergy Verified 12/02/16 05:03 PMH/Surg Hx/FS Hx/Imm Hx Endocrine/Hematology History: Denies: Hx Anticoagulant Therapy Cardiovascular History: Denies: Hx Hypertension Sensory History: Denies: Hx Contacts or Glasses, Hx Hearing Aid Opthamlomology History: Denies: Hx Contacts or Glasses Psychiatric History: Reports: Hx Anxiety, Hx Attention Deficit Hyperactivity Disorder, Hx Depression, Hx Post Traumatic Stress Disorder, Hx Bipolar Disorder , Hx of Violent Episodes Against Others, Hx Substance Abuse - stimulants - adderall, cocaine, crack Denies: Hx Eating Disorder - Surgical History Surgery Procedure, Year, and Place: None Infectious Disease History: No Infectious Disease History: Denies: Traveled Outside the [place] in Last 30 Days - Family History Known Family History: Positive: Other - depression, drug abuse - Social History Lives: Alone Alcohol Use: Weekly Alcohol Amount: beer Substance Use Type: Reports: Cocaine, Marijuana Substance Use Comment - Amount & Last Used: crack cocaine Smoking Status (MU): Never Smoked Tobacco Review of Systems Negative: Fever, Chills Neurological: Other - SI All Other Systems Reviewed And Are Negative: Yes Physical Exam - Summary Physical Exam Summary: General: Well appearing, no pain distress Skin: Warm, Skin Color Reflects Adequate Perfusion, Dry Eyes: EOMI, SARA ENT: Pharynx normal, TMs normal Neck: Supple, nontender Respiratory: CTA, breath sounds present, no rhonchi, no wheezes, no rales Cardiovascular: RRR, no murmur, no rub, no gallop Abdomen: Soft, nontender, Non-distended, no guarding, no rebound Bowel: Present Musculoskeletal: JAYLEN, No edema Neuro: Sensory/motor intact, A&Ox3, CN intact 2-12 Psych: Insistent he is going to kill himself Triage Information Reviewed: Yes Vital Signs On Initial Exam: Initial Vitals Temp Pulse Resp BP Pulse Ox 98.7 F 84 16 132/57 99 12/14/16 16:59 12/14/16 16:59 12/14/16 16:59 12/14/16 16:59 12/14/16 16:59 Vital Signs Reviewed: Yes Diagnostics - Vital Signs Vital Signs Temp Pulse Resp BP Pulse Ox 12/14/16 16:59 98.7 F 84 16 132/57 99 - Laboratory Lab Results: Lab Results 12/14/16 12/14/16 12/14/16 Range/Units 17:50 17:50 19:04 WBC 5.6 (3.5-10.8) 10^3/ul RBC 4.68 (4.0-5.4) 10^6/ul Hgb 10.7 L (14.0-18.0) g/dl Hct 34 L (42-52) % MCV 73 L (80-94) fL MCH 23 L (27-31) pg MCHC 31 (31-36) g/dl RDW 17 H (10.5-15) % Plt Count 219 (150-450) 10^3/ul MPV 8 (7.4-10.4) um3 Neut % (Auto) 69.8 (38-83) % Lymph % (Auto) 21.6 L (25-47) % [place] % (Auto) 6.3 (1-9) % Eos % (Auto) 1.7 (0-6) % Baso % (Auto) 0.6 (0-2) % Absolute Neuts (auto) 3.9 (1.5-7.7) 10^3/ul Absolute Lymphs (auto) 1.2 (1.0-4.8) 10^3/ul Absolute Monos (auto) 0.4 (0-0.8) 10^3/ul Absolute Eos (auto) 0.1 (0-0.6) 10^3/ul Absolute Basos (auto) 0 (0-0.2) 10^3/ul Absolute Nucleated RBC 0 10^3/ul Nucleated RBC % 0 Sodium 142 (133-145) mmol/L Potassium 4.0 (3.5-5.0) mmol/L Chloride 113 H (101-111) mmol/L Carbon Dioxide 25 (22-32) mmol/L Anion Gap 4 (2-11) mmol/L BUN 8 (6-24) mg/dL Creatinine 0.88 (0.67-1.17) mg/dL Est GFR ( Amer) 140.6 (>60) Est GFR (Non-Af Amer) 109.3 (>60) BUN/Creatinine Ratio 9.1 (8-20) Glucose 101 H (70-100) mg/dL Calcium 9.0 (8.6-10.3) mg/dL Total Bilirubin 0.30 (0.2-1.0) mg/dL AST 16 (13-39) U/L ALT 12 (7-52) U/L Alkaline Phosphatase 62 (34-104) U/L Total Protein 6.4 (6.4-8.9) g/dL Albumin 3.8 (3.2-5.2) g/dL Globulin 2.6 (2-4) g/dL Albumin/Globulin Ratio 1.5 (1-3) TSH 1.81 (0.34-5.60) mcIU/mL Urine Color Urine Appearance Urine pH (5-9) Ur Specific [place] (1.010-1.030) Urine Protein (Negative) Urine Ketones (Negative) Urine Blood (Negative) Urine Nitrate (Negative) Urine Bilirubin (Negative) Urine Urobilinogen (Negative) Ur Leukocyte Esterase (Negative) Urine Glucose (Negative) Salicylates < 2.50 (<30) mg/dL Urine Opiates Screen None detected (None Detect) Acetaminophen < 15 mcg/mL Ur Barbiturates Screen None detected (None Detect) Ur Phencyclidine Scrn None detected (None Detect) Ur Amphetamines Screen None detected (None Detect) U Benzodiazepines Scrn None detected (None Detect) Urine Cocaine Screen None detected (None Detect) U Cannabinoids Screen Presumptive positive H (None Detect) Serum Alcohol < 10 (<10) mg/dL 12/14/16 Range/Units 19:04 WBC (3.5-10.8) 10^3/ul RBC (4.0-5.4) 10^6/ul Hgb (14.0-18.0) g/dl Hct (42-52) % MCV (80-94) fL MCH (27-31) pg MCHC (31-36) g/dl RDW (10.5-15) % Plt Count (150-450) 10^3/ul MPV (7.4-10.4) um3 Neut % (Auto) (38-83) % Lymph % (Auto) (25-47) % [place] % (Auto) (1-9) % Eos % (Auto) (0-6) % Baso % (Auto) (0-2) % Absolute Neuts (auto) (1.5-7.7) 10^3/ul Absolute Lymphs (auto) (1.0-4.8) 10^3/ul Absolute Monos (auto) (0-0.8) 10^3/ul Absolute Eos (auto) (0-0.6) 10^3/ul Absolute Basos (auto) (0-0.2) 10^3/ul Absolute Nucleated RBC 10^3/ul Nucleated RBC % Sodium (133-145) mmol/L Potassium (3.5-5.0) mmol/L Chloride (101-111) mmol/L Carbon Dioxide (22-32) mmol/L Anion Gap (2-11) mmol/L BUN (6-24) mg/dL Creatinine (0.67-1.17) mg/dL Est GFR ( Amer) (>60) Est GFR (Non-Af Amer) (>60) BUN/Creatinine Ratio (8-20) Glucose (70-100) mg/dL Calcium (8.6-10.3) mg/dL Total Bilirubin (0.2-1.0) mg/dL AST (13-39) U/L ALT (7-52) U/L Alkaline Phosphatase (34-104) U/L Total Protein (6.4-8.9) g/dL Albumin (3.2-5.2) g/dL Globulin (2-4) g/dL Albumin/Globulin Ratio (1-3) TSH (0.34-5.60) mcIU/mL Urine Color Straw Urine Appearance Clear Urine pH 5.0 (5-9) Ur Specific [place] 1.013 (1.010-1.030) Urine Protein Negative (Negative) Urine Ketones Negative (Negative) Urine Blood Negative (Negative) Urine Nitrate Negative (Negative) Urine Bilirubin Negative (Negative) Urine Urobilinogen Negative (Negative) Ur Leukocyte Esterase Negative (Negative) Urine Glucose Negative (Negative) Salicylates (<30) mg/dL Urine Opiates Screen (None Detect) Acetaminophen mcg/mL Ur Barbiturates Screen (None Detect) Ur Phencyclidine Scrn (None Detect) Ur Amphetamines Screen (None Detect) U Benzodiazepines Scrn (None Detect) Urine Cocaine Screen (None Detect) U Cannabinoids Screen (None Detect) Serum Alcohol (<10) mg/dL Result Diagrams: 12/14/16 17:50 12/14/16 17:50 Lab Statement: Any lab studies that have been ordered have been reviewed, and results considered in the medical decision making process. Course/Dx - Course Course Of Treatment: 21 yo who reports suicidality pt will be signed out to Dr. Bush for final disposition - Differential Dx/Clinical Impression Provider Diagnosis: Suicidal ideations Discharge - Discharge Plan Condition: Stable Disposition: HOME The documentation as recorded by the Xiomara graff Alfonso accurately reflects the service I personally performed and the decisions made by , Joanne Salguero MD.
[2016-12-15 00:25] VITALS: BP 107/44
--- NOTE | 2016-12-15 05:36 | ED ---
Verna Betancourt Rebecca, scribed for Darius Bush on 12/15/16 at 0533 . Progress - Progress Note Progress Note: Pt was signed out by Dr. Salguero pending dispo, awaiting MHE. Course/Dx - Course Course Of Treatment: Pt was signed out by Dr. Salguero, pending dispo, awaiting MHE. At the end of shift, pt's MHE has not been completed. Pt's condition is stable and he will be signed out, pending disposition, awaiting MHE completion. - Diagnoses Provider Diagnoses: Suicidal ideations, Depression The documentation as recorded by the Verna graff Rebecca accurately reflects the service I personally performed and the decisions made by , Darius Bush.
== END | disposition home or self-care (01) ==
LOC: ED 16:29
DX: R45.851 Suicidal ideations (principal); F32.9 Major depressive disorder, single episode, unspecified
CPT/HCPCS: 36415; 80053; 80307; 80320; 80329; 81003; 84443; 85025; 99283; G0480

== ENCOUNTER 2017-01-28 22:14 | Emergency (ER) | payer OTHER ==
[2017-01-28 22:24] VITALS: BP 122/61
[2017-01-28 23:57] LABS: Hematocrit 34 % (42-52); Hemoglobin 10.9 g/dl (14.0-18.0); Mean Corpuscular HGB Conc 32 g/dl (31-36); Mean Corpuscular Hemoglobin 23 pg (27-31); Mean Platelet Volume 8 um3 (7.4-10.4); Red Blood Count 4.67 10^6/ul (4.0-5.4); Red Cell Distribution Width 16 % (10.5-15); White Blood Count 5.5 10^3/ul (3.5-10.8)
[2017-01-28 23:59] LABS: Comments Flag Yes; Mean Corpuscular Volume 72 fL (80-94)
[2017-01-29 00:12] LABS: ALT 14 U/L (7-52); AST 18 U/L (13-39); Acetaminophen < 15 mcg/mL; Albumin 3.9 g/dL (3.2-5.2); Alcohol < 10 mg/dL (<10); Alkaline Phosphatase 73 U/L (34-104); Anion Gap 3 mmol/L (2-11); BUN/Creatinine Ratio 9.1 (8-20); Blood Urea Nitrogen 9 mg/dL (6-24); CO2 Carbon Dioxide 28 mmol/L (22-32); Calcium 9.4 mg/dL (8.6-10.3); Chloride 107 mmol/L (101-111); EGFR African American 122.7 (>60); EGFR Non-African American 95.4 (>60); Globulin 2.4 g/dL (2-4); Glucose 107 mg/dL (70-100); Salicylate < 2.50 mg/dL (<30); Sodium 138 mmol/L (133-145); Total Protein 6.3 g/dL (6.4-8.9)
[2017-01-29 00:27] LABS: TSH (Thyroid Stimulating Horm) 0.55 mcIU/mL (0.34-5.60)
[2017-01-29 07:19] LABS: Urine Bacteria Absent (Absent); Urine Bilirubin Negative (Negative); Urine Glucose Negative (Negative); Urine Nitrite Negative (Negative)
[2017-01-29 07:25] LABS: Benzodiazepine Urine Screen None Detected (None Detect)
--- NOTE | 2017-01-29 09:40 | PN ---
ED Flex Patient Progress Note Date of Service: 01/29/17 Subjective: This is a 21 year-old M who is pending psych evaluation once he wakes up. Pt offers no complaints at this time and is currently sleeping upon arrival. Objective: Vitals: Most recent vital signs documented below. General NAD, Alert and oriented x3. Heart: rrr at 61 bpm Lungs: CTA or with rales, rhonchi, wheezing Laboratory: Current laboratory results documented below. Assessment: Pending psych eval. no complaints at this time. will wait for eval and dispo Plan: Pending psychiatric consultation and disposition. will follow up daily. Vital Signs Temp Pulse Resp BP Pulse Ox 98.8 F 61 20 122/61 99 01/28/17 22:21 01/28/17 22:21 01/28/17 22:21 01/28/17 22:21 01/28/17 22:21 Lab Results - Entire Visit 01/29/17 01/29/17 01/28/17 06:57 06:57 23:45 WBC 5.5 RBC 4.67 Hgb 10.9 L Hct 34 L MCV 72 L MCH 23 L MCHC 32 RDW 16 H Plt Count 229 MPV 8 Neut % (Auto) 57.0 Lymph % (Auto) 28.8 [place] % (Auto) 10.8 H Eos % (Auto) 2.8 Baso % (Auto) 0.6 Absolute Neuts (auto) 3.1 Absolute Lymphs (auto) 1.6 Absolute Monos (auto) 0.6 Absolute Eos (auto) 0.2 Absolute Basos (auto) 0 Absolute Nucleated RBC 0 Nucleated RBC % 0 Sodium Potassium Chloride Carbon Dioxide Anion Gap BUN Creatinine Est GFR ( Amer) Est GFR (Non-Af Amer) BUN/Creatinine Ratio Glucose Calcium Total Bilirubin AST ALT Alkaline Phosphatase Total Protein Albumin Globulin Albumin/Globulin Ratio TSH Urine Color Yellow Urine Appearance Clear Urine pH 6.0 Ur Specific [place] 1.029 Urine Protein Negative Urine Ketones Negative Urine Blood 1+ H Urine Nitrate Negative Urine Bilirubin Negative Urine Urobilinogen Negative Ur Leukocyte Esterase Negative Urine WBC (Auto) Trace(0-5/hpf) Urine RBC (Auto) Trace(0-2/hpf) Urine Bacteria Absent Urine Glucose Negative Salicylates Urine Opiates Screen None detected Acetaminophen Ur Barbiturates Screen None detected Ur Phencyclidine Scrn None detected Ur Amphetamines Screen None detected U Benzodiazepines Scrn None detected Urine Cocaine Screen Presumptive positive H U Cannabinoids Screen Presumptive positive H Serum Alcohol 01/28/17 23:45 WBC RBC Hgb Hct MCV MCH MCHC RDW Plt Count MPV Neut % (Auto) Lymph % (Auto) [place] % (Auto) Eos % (Auto) Baso % (Auto) Absolute Neuts (auto) Absolute Lymphs (auto) Absolute Monos (auto) Absolute Eos (auto) Absolute Basos (auto) Absolute Nucleated RBC Nucleated RBC % Sodium 138 Potassium 4.0 Chloride 107 Carbon Dioxide 28 Anion Gap 3 BUN 9 Creatinine 0.99 Est GFR ( Amer) 122.7 Est GFR (Non-Af Amer) 95.4 BUN/Creatinine Ratio 9.1 Glucose 107 H Calcium 9.4 Total Bilirubin 0.30 AST 18 ALT 14 Alkaline Phosphatase 73 Total Protein 6.3 L Albumin 3.9 Globulin 2.4 Albumin/Globulin Ratio 1.6 TSH 0.55 Urine Color Urine Appearance Urine pH Ur Specific [place] Urine Protein Urine Ketones Urine Blood Urine Nitrate Urine Bilirubin Urine Urobilinogen Ur Leukocyte Esterase Urine WBC (Auto) Urine RBC (Auto) Urine Bacteria Urine Glucose Salicylates < 2.50 Urine Opiates Screen Acetaminophen < 15 Ur Barbiturates Screen Ur Phencyclidine Scrn Ur Amphetamines Screen U Benzodiazepines Scrn Urine Cocaine Screen U Cannabinoids Screen Serum Alcohol < 10
--- NOTE | 2017-01-30 04:44 | ED ---
Peggy Betancourt Jason, scribed for Darius Bush on 01/28/17 at 2308 . Psychiatric Complaint <Nata Daley Amy - Last Filed: 01/29/17 12:40> - HPI Summary HPI Summary: This patient is a 21 year old M presenting to [facility] with a chief complaint of SI since 1 week ago. The patient says he feels broken, causing him to have SI for about 1 week. The patient rates the pain 0/10 in severity. Symptoms aggravated by nothing. Symptoms alleviated by nothing. Patient reports hx of depression. - History Of Current Complaint Hx Obtained From: Patient Onset/Duration: Gradual Onset, Lasting Weeks - Since 1 week ago, Still Present Timing: Constant Character: Depressed Aggravating Factor(s): Nothing Alleviating Factor(s): Nothing Has Suicidal: Reports: Thoughts <RachelleMinooDarius - Last Filed: 01/30/17 04:44> - History Of Current Complaint Chief Complaint: EDMentalHealth Time Seen by Provider: 01/28/17 22:18 - Allergies/Home Medications Allergies/Adverse Reactions: Allergies Allergy/AdvReac Type Severity Reaction Status Date / Time No Known Allergies Allergy Verified 12/02/16 05:03 PMH/Surg Hx/FS Hx/Imm Hx Previously Healthy: No Endocrine/Hematology History: Denies: Hx Anticoagulant Therapy Cardiovascular History: Denies: Hx Hypertension Sensory History: Denies: Hx Contacts or Glasses, Hx Hearing Aid Opthamlomology History: Denies: Hx Contacts or Glasses Psychiatric History: Reports: Hx Anxiety, Hx Attention Deficit Hyperactivity Disorder, Hx Depression, Hx Post Traumatic Stress Disorder, Hx Bipolar Disorder , Hx of Violent Episodes Against Others, Hx Substance Abuse - stimulants - adderall, cocaine, crack Denies: Hx Eating Disorder - Surgical History Surgery Procedure, Year, and Place: None Infectious Disease History: No Infectious Disease History: Denies: Traveled Outside the [place] in Last 30 Days - Family History Known Family History: Positive: Other - depression, drug abuse Negative: Blood Disorder - Social History Alcohol Use: Weekly Alcohol Amount: beer Substance Use Type: Reports: Cocaine, Marijuana Substance Use Comment - Amount & Last Used: crack cocaine Smoking Status (MU): Never Smoked Tobacco <Darius Bush - Last Filed: 01/30/17 04:44> Review of Systems Negative: Fever Positive: Depressed, Other - SI All Other Systems Reviewed And Are Negative: Yes <YovaniDarius espinal - Last Filed: 01/30/17 04:44> Physical Exam Vital Signs On Initial Exam: Initial Vitals Temp Pulse Resp BP Pulse Ox 98.8 F 61 20 122/61 99 01/28/17 22:21 01/28/17 22:21 01/28/17 22:21 01/28/17 22:21 01/28/17 22:21 <Nata Daley - Last Filed: 01/29/17 12:40> - Summary Physical Exam Summary: Appearance: No pain distress, depressed affect. Skin: warm, dry, reflects adequate perfusion Head/face: normal Eyes: EOMI, SARA ENT: normal Neck: supple, non-tender Respiratory: CTA, breath sounds present Cardiovascular: RRR, pulses symmetrical Abdomen: non-tender, soft Bowel: present Musculoskeletal: normal, strength/ROM intact Neuro: normal, sensory motor intact, A&Ox3 Triage Information Reviewed: Yes Vital Signs On Initial Exam: Initial Vitals Temp Pulse Resp BP Pulse Ox 98.8 F 61 20 122/61 99 01/28/17 22:21 01/28/17 22:21 01/28/17 22:21 01/28/17 22:21 01/28/17 22:21 Vital Signs Reviewed: Yes - Emi Coma Scale Coma Scale Total: 15 <Darius Bush - Last Filed: 01/30/17 04:44> Diagnostics - Vital Signs Vital Signs Temp Pulse Resp BP Pulse Ox 01/28/17 22:21 98.8 F 61 20 122/61 99 - Laboratory Lab Results: Lab Results 01/28/17 01/28/17 01/29/17 Range/Units 23:45 23:45 06:57 WBC 5.5 (3.5-10.8) 10^3/ul RBC 4.67 (4.0-5.4) 10^6/ul Hgb 10.9 L (14.0-18.0) g/dl Hct 34 L (42-52) % MCV 72 L (80-94) fL MCH 23 L (27-31) pg MCHC 32 (31-36) g/dl RDW 16 H (10.5-15) % Plt Count 229 (150-450) 10^3/ul MPV 8 (7.4-10.4) um3 Neut % (Auto) 57.0 (38-83) % Lymph % (Auto) 28.8 (25-47) % [place] % (Auto) 10.8 H (1-9) % Eos % (Auto) 2.8 (0-6) % Baso % (Auto) 0.6 (0-2) % Absolute Neuts (auto) 3.1 (1.5-7.7) 10^3/ul Absolute Lymphs (auto) 1.6 (1.0-4.8) 10^3/ul Absolute Monos (auto) 0.6 (0-0.8) 10^3/ul Absolute Eos (auto) 0.2 (0-0.6) 10^3/ul Absolute Basos (auto) 0 (0-0.2) 10^3/ul Absolute Nucleated RBC 0 10^3/ul Nucleated RBC % 0 Sodium 138 (133-145) mmol/L Potassium 4.0 (3.5-5.0) mmol/L Chloride 107 (101-111) mmol/L Carbon Dioxide 28 (22-32) mmol/L Anion Gap 3 (2-11) mmol/L BUN 9 (6-24) mg/dL Creatinine 0.99 (0.67-1.17) mg/dL Est GFR ( Amer) 122.7 (>60) Est GFR (Non-Af Amer) 95.4 (>60) BUN/Creatinine Ratio 9.1 (8-20) Glucose 107 H (70-100) mg/dL Calcium 9.4 (8.6-10.3) mg/dL Total Bilirubin 0.30 (0.2-1.0) mg/dL AST 18 (13-39) U/L ALT 14 (7-52) U/L Alkaline Phosphatase 73 (34-104) U/L Total Protein 6.3 L (6.4-8.9) g/dL Albumin 3.9 (3.2-5.2) g/dL Globulin 2.4 (2-4) g/dL Albumin/Globulin Ratio 1.6 (1-3) TSH 0.55 (0.34-5.60) mcIU/mL Urine Color Urine Appearance Urine pH (5-9) Ur Specific Gove (1.010-1.030) Urine Protein (Negative) Urine Ketones (Negative) Urine Blood (Negative) Urine Nitrate (Negative) Urine Bilirubin (Negative) Urine Urobilinogen (Negative) Ur Leukocyte Esterase (Negative) Urine WBC (Auto) (Absent) Urine RBC (Auto) (Absent) Urine Bacteria (Absent) Urine Glucose (Negative) Salicylates < 2.50 (<30) mg/dL Urine Opiates Screen None detected (None Detect) Acetaminophen < 15 mcg/mL Ur Barbiturates Screen None detected (None Detect) Ur Phencyclidine Scrn None detected (None Detect) Ur Amphetamines Screen None detected (None Detect) U Benzodiazepines Scrn None detected (None Detect) Urine Cocaine Screen Presumptive positive H (None Detect) U Cannabinoids Screen Presumptive positive H (None Detect) Serum Alcohol < 10 (<10) mg/dL 01/29/17 Range/Units 06:57 WBC (3.5-10.8) 10^3/ul RBC (4.0-5.4) 10^6/ul Hgb (14.0-18.0) g/dl Hct (42-52) % MCV (80-94) fL MCH (27-31) pg MCHC (31-36) g/dl RDW (10.5-15) % Plt Count (150-450) 10^3/ul MPV (7.4-10.4) um3 Neut % (Auto) (38-83) % Lymph % (Auto) (25-47) % [place] % (Auto) (1-9) % Eos % (Auto) (0-6) % Baso % (Auto) (0-2) % Absolute Neuts (auto) (1.5-7.7) 10^3/ul Absolute Lymphs (auto) (1.0-4.8) 10^3/ul Absolute Monos (auto) (0-0.8) 10^3/ul Absolute Eos (auto) (0-0.6) 10^3/ul Absolute Basos (auto) (0-0.2) 10^3/ul Absolute Nucleated RBC 10^3/ul Nucleated RBC % Sodium (133-145) mmol/L Potassium (3.5-5.0) mmol/L Chloride (101-111) mmol/L Carbon Dioxide (22-32) mmol/L Anion Gap (2-11) mmol/L BUN (6-24) mg/dL Creatinine (0.67-1.17) mg/dL Est GFR ( Amer) (>60) Est GFR (Non-Af Amer) (>60) BUN/Creatinine Ratio (8-20) Glucose (70-100) mg/dL Calcium (8.6-10.3) mg/dL Total Bilirubin (0.2-1.0) mg/dL AST (13-39) U/L ALT (7-52) U/L Alkaline Phosphatase (34-104) U/L Total Protein (6.4-8.9) g/dL Albumin (3.2-5.2) g/dL Globulin (2-4) g/dL Albumin/Globulin Ratio (1-3) TSH (0.34-5.60) mcIU/mL Urine Color Yellow Urine Appearance Clear Urine pH 6.0 (5-9) Ur Specific Gove 1.029 (1.010-1.030) Urine Protein Negative (Negative) Urine Ketones Negative (Negative) Urine Blood 1+ H (Negative) Urine Nitrate Negative (Negative) Urine Bilirubin Negative (Negative) Urine Urobilinogen Negative (Negative) Ur Leukocyte Esterase Negative (Negative) Urine WBC (Auto) Trace(0-5/hpf) (Absent) Urine RBC (Auto) Trace(0-2/hpf) (Absent) Urine Bacteria Absent (Absent) Urine Glucose Negative (Negative) Salicylates (<30) mg/dL Urine Opiates Screen (None Detect) Acetaminophen mcg/mL Ur Barbiturates Screen (None Detect) Ur Phencyclidine Scrn (None Detect) Ur Amphetamines Screen (None Detect) U Benzodiazepines Scrn (None Detect) Urine Cocaine Screen (None Detect) U Cannabinoids Screen (None Detect) Serum Alcohol (<10) mg/dL Result Diagrams: 01/28/17 23:45 01/28/17 23:45 Lab Statement: Any lab studies that have been ordered have been reviewed, and results considered in the medical decision making process. <Nata Daley - Last Filed: 01/29/17 12:40> - Vital Signs Vital Signs Temp Pulse Resp BP Pulse Ox 01/28/17 22:21 98.8 F 61 20 122/61 99 - Laboratory Lab Results: Lab Results 01/28/17 01/28/17 01/29/17 Range/Units 23:45 23:45 06:57 WBC 5.5 (3.5-10.8) 10^3/ul RBC 4.67 (4.0-5.4) 10^6/ul Hgb 10.9 L (14.0-18.0) g/dl Hct 34 L (42-52) % MCV 72 L (80-94) fL MCH 23 L (27-31) pg MCHC 32 (31-36) g/dl RDW 16 H (10.5-15) % Plt Count 229 (150-450) 10^3/ul MPV 8 (7.4-10.4) um3 Neut % (Auto) 57.0 (38-83) % Lymph % (Auto) 28.8 (25-47) % [place] % (Auto) 10.8 H (1-9) % Eos % (Auto) 2.8 (0-6) % Baso % (Auto) 0.6 (0-2) % Absolute Neuts (auto) 3.1 (1.5-7.7) 10^3/ul Absolute Lymphs (auto) 1.6 (1.0-4.8) 10^3/ul Absolute Monos (auto) 0.6 (0-0.8) 10^3/ul Absolute Eos (auto) 0.2 (0-0.6) 10^3/ul Absolute Basos (auto) 0 (0-0.2) 10^3/ul Absolute Nucleated RBC 0 10^3/ul Nucleated RBC % 0 Sodium 138 (133-145) mmol/L Potassium 4.0 (3.5-5.0) mmol/L Chloride 107 (101-111) mmol/L Carbon Dioxide 28 (22-32) mmol/L Anion Gap 3 (2-11) mmol/L BUN 9 (6-24) mg/dL Creatinine 0.99 (0.67-1.17) mg/dL Est GFR ( Amer) 122.7 (>60) Est GFR (Non-Af Amer) 95.4 (>60) BUN/Creatinine Ratio 9.1 (8-20) Glucose 107 H (70-100) mg/dL Calcium 9.4 (8.6-10.3) mg/dL Total Bilirubin 0.30 (0.2-1.0) mg/dL AST 18 (13-39) U/L ALT 14 (7-52) U/L Alkaline Phosphatase 73 (34-104) U/L Total Protein 6.3 L (6.4-8.9) g/dL Albumin 3.9 (3.2-5.2) g/dL Globulin 2.4 (2-4) g/dL Albumin/Globulin Ratio 1.6 (1-3) TSH 0.55 (0.34-5.60) mcIU/mL Urine Color Urine Appearance Urine pH (5-9) Ur Specific Gove (1.010-1.030) Urine Protein (Negative) Urine Ketones (Negative) Urine Blood (Negative) Urine Nitrate (Negative) Urine Bilirubin (Negative) Urine Urobilinogen (Negative) Ur Leukocyte Esterase (Negative) Urine WBC (Auto) (Absent) Urine RBC (Auto) (Absent) Urine Bacteria (Absent) Urine Glucose (Negative) Salicylates < 2.50 (<30) mg/dL Urine Opiates Screen None detected (None Detect) Acetaminophen < 15 mcg/mL Ur Barbiturates Screen None detected (None Detect) Ur Phencyclidine Scrn None detected (None Detect) Ur Amphetamines Screen None detected (None Detect) U Benzodiazepines Scrn None detected (None Detect) Urine Cocaine Screen Presumptive positive H (None Detect) U Cannabinoids Screen Presumptive positive H (None Detect) Serum Alcohol < 10 (<10) mg/dL 01/29/17 Range/Units 06:57 WBC (3.5-10.8) 10^3/ul RBC (4.0-5.4) 10^6/ul Hgb (14.0-18.0) g/dl Hct (42-52) % MCV (80-94) fL MCH (27-31) pg MCHC (31-36) g/dl RDW (10.5-15) % Plt Count (150-450) 10^3/ul MPV (7.4-10.4) um3 Neut % (Auto) (38-83) % Lymph % (Auto) (25-47) % [place] % (Auto) (1-9) % Eos % (Auto) (0-6) % Baso % (Auto) (0-2) % Absolute Neuts (auto) (1.5-7.7) 10^3/ul Absolute Lymphs (auto) (1.0-4.8) 10^3/ul Absolute Monos (auto) (0-0.8) 10^3/ul Absolute Eos (auto) (0-0.6) 10^3/ul Absolute Basos (auto) (0-0.2) 10^3/ul Absolute Nucleated RBC 10^3/ul Nucleated RBC % Sodium (133-145) mmol/L Potassium (3.5-5.0) mmol/L Chloride (101-111) mmol/L Carbon Dioxide (22-32) mmol/L Anion Gap (2-11) mmol/L BUN (6-24) mg/dL Creatinine (0.67-1.17) mg/dL Est GFR ( Amer) (>60) Est GFR (Non-Af Amer) (>60) BUN/Creatinine Ratio (8-20) Glucose (70-100) mg/dL Calcium (8.6-10.3) mg/dL Total Bilirubin (0.2-1.0) mg/dL AST (13-39) U/L ALT (7-52) U/L Alkaline Phosphatase (34-104) U/L Total Protein (6.4-8.9) g/dL Albumin (3.2-5.2) g/dL Globulin (2-4) g/dL Albumin/Globulin Ratio (1-3) TSH (0.34-5.60) mcIU/mL Urine Color Yellow Urine Appearance Clear Urine pH 6.0 (5-9) Ur Specific Gove 1.029 (1.010-1.030) Urine Protein Negative (Negative) Urine Ketones Negative (Negative) Urine Blood 1+ H (Negative) Urine Nitrate Negative (Negative) Urine Bilirubin Negative (Negative) Urine Urobilinogen Negative (Negative) Ur Leukocyte Esterase Negative (Negative) Urine WBC (Auto) Trace(0-5/hpf) (Absent) Urine RBC (Auto) Trace(0-2/hpf) (Absent) Urine Bacteria Absent (Absent) Urine Glucose Negative (Negative) Salicylates (<30) mg/dL Urine Opiates Screen (None Detect) Acetaminophen mcg/mL Ur Barbiturates Screen (None Detect) Ur Phencyclidine Scrn (None Detect) Ur Amphetamines Screen (None Detect) U Benzodiazepines Scrn (None Detect) Urine Cocaine Screen (None Detect) U Cannabinoids Screen (None Detect) Serum Alcohol (<10) mg/dL Result Diagrams: 01/28/17 23:45 01/28/17 23:45 Lab Statement: Any lab studies that have been ordered have been reviewed, and results considered in the medical decision making process. <Darius Bush - Last Filed: 01/30/17 04:44> Course/Dx <Nata Daley - Last Filed: 01/29/17 12:40> - Course Course Of Treatment: This patient is a 21 year old M presenting to [facility] with a chief complaint of SI since 1 week ago. Cleared for MHE at 0256. <Darius Bush - Last Filed: 01/30/17 04:44> - Differential Dx/Clinical Impression Provider Diagnosis: Depression, Suicidal ideation Discharge <Nata Daley - Last Filed: 01/29/17 12:40> - Discharge Plan Discharge Disposition Comment: Patient is signed out to Dr. Tovar, pending disposition, awaiting MHE <Darius Bush - Last Filed: 01/30/17 04:44> - Discharge Plan Condition: Stable Disposition: HOME Patient Education Materials: Depression (ED) Referrals: No Primary Care Phys,NOPCP [Primary Care Provider] - Additional Instructions: follow up with [facility] and mental health. Return to the ED if any new or worsening symptoms. The documentation as recorded by the Peggy graff Jason accurately reflects the service I personally performed and the decisions made by Rachelle luo Emmanuel.
== END 2017-01-29 12:45 | disposition home or self-care (01) ==
LOC: ED 22:14
DX: F32.9 Major depressive disorder, single episode, unspecified (principal); R45.851 Suicidal ideations
CPT/HCPCS: 36415; 80053; 80307; 80320; 80329; 81003; 81015; 84443; 85025; 99284; G0480